=== PATIENT | female | born 1980 | race Caucasian/White ===

== ENCOUNTER → 2019-03-13 12:06 | Outpatient (CLI) | payer OTHER, SELFPAY ==
--- NOTE | 2019-03-13 | DI.RAD.S_ITS ---
PROCEDURE: [place] HIP INJECTION MR/CT RT INDICATIONS: PAIN IN RIGHT HIP TECHNIQUE: The indications, alternatives, benefits, risks, and complications of the procedure were explained to the patient. Written informed consent was obtained and placed in the chart. The hip was examined fluoroscopically with the legs fixed in slight internal rotation, and a site for needle placement chosen for entry into the hip joint from an anterior approach. Care was taken to locate the common femoral artery and vein beforehand. The skin was prepped and draped in a sterile fashion, and 1% Lidocaine infiltrated from skin down to joint capsule. A spinal needle was inserted into the joint, and a small amount of iodinated contrast media injected to confirm intra-articular placement of the needle tip. This was followed by approximately 10 mL dilute solution of a gadolinium containing MR contrast agent. The needle was removed and a dressing was applied. The patient was given postprocedural instructions and sent to the MR suite for imaging. FINDINGS: A single fluoroscopic spot image demonstrates intra-articular location of injected iodinated contrast. IMPRESSION: Successful fluoroscopically guided administration of dilute Gadolinium solution into the hip joint for MR arthrogram. Dictated by: Maritza Rome M.D. on 03/13/2019 at 14:54 Approved by: Maritza Rome M.D. on 03/13/2019 at 14:54
--- NOTE | 2019-03-13 13:41 | DI.MRI.S_ITS ---
PROCEDURE: MR HIP RT W CON INDICATIONS: PAIN IN RIGHT HIP TECHNIQUE: After the administration of 10 mL of dilute intra-articular Gadolinium contrast, coronal STIR of the bony pelvis; coronal and oblique axial T1 spin echo with fat saturation, axial T2 fast spin echo with fat saturation, sagittal T1 spin echo with and without fat saturation of the involved hip. COMPARISON: [facility], , [place] HIP INJECTION MR/CT RT, 03/13/2019, 12:54. FINDINGS: Image quality: Excellent. Bones and joints: Bone marrow of the pelvic ring and proximal femurs show normal signal throughout. No intraosseous lesions or fractures. No avascular necrosis of the femoral head. The visualized lower lumbar spine appears normally aligned. The ligamental, neck, and labral plicae appear normal where visualized. Tendons and ligaments: The gluteus medius and minimus tendons appear intact, without associated muscle atrophy. The nearby proximal iliotibial band also appears intact. The iliopsoas tendon appears intact, without adjacent bursal fluid collections or evidence for impingement syndrome. The origin of the hamstring tendon is intact at the ischial tuberosity, as well as the associated sacrotuberous ligament. The straight and reflected heads of the rectus femoris muscle origin appear intact, as well as the conjoint tendon. The ligamentum teres appears intact where visualized. Labrum and cartilage: The acetabular labrum appears intact throughout. Cartilage surface of the femoral head appears of normal thickness. No paralabral cysts. Anterior dysplastic osseous bump at the femoral head-neck junction however the alpha angle of the femur is within normal limits at 51?. Soft tissues: Incidentally noted prominent obturator vein. Visualized muscles demonstrate normal bulk and internal signal. Quadratus femoris muscle demonstrates no internal edema to suggest ischiofemoral impingement. The proximal sciatic neurovascular bundle appears normal adjacent to the hamstring tendons. No free pelvic fluid. Bladder wall thickness is normal. Genitourinary structures and bowel loops appear normal where visualized. IMPRESSION: No labral tear or internal derangement identified. Dictated by: Siva Zaman M.D. on 03/13/2019 at 15:13 Approved by: Siva Zaman M.D. on 03/13/2019 at 15:23
== END ==
PROVIDERS: Visit Provider Family Medicine
DX: M25.551 Pain in right hip (principal)
CPT/HCPCS: 27093; 73722; 77002

== ENCOUNTER 2023-04-12 11:33 | Day surgery (SDC) | payer OTHER, SELFPAY ==
[2023-04-09 12:27] VITALS: BMI 17.9
[2023-04-12] VITALS (10 sets, daily range): BP systolic 99–119; BP diastolic 63–71; PULSE 71–88; RESP 16; TEMP 36.2–37.1; O2SAT 98–100; BMI 17.9
--- NOTE | 2023-04-12 | PATH_ITS ---
[facility] Accession Number: [id number] No. of containers..01 Tissue . 01 Material submitted: . fallopian tube - RIGHT TUBE AND OVARY LEFT TUBE AND LIGACLIPS . 01 Diagnosis: Right Fallopian Tube and Ovary, and Left Fallopian Tube and Ligaclips, Excision: Benign ovary with cystic follicles and hemorrhagic corpus luteum. Negative for endometriosis, atypia, and malignancy. Benign bilateral fallopian tubes and paratubal cysts. MRV 04/18/2023 1658 Local . 01 Electronically signed: . Chris Rice MD, Pathologist NPI- [id number] . 01 Gross description: . The specimen is received in formalin labeled with the patient's name, , and R tube/ovary, L tube Ligaclip, consists of a presumed right tubo-ovarian unit (per the requisition) with the tube measuring 7.2 cm in length by 0.8 cm in average diameter, and the ovary weighing 8 grams and measuring 4.3 x 2.4 x 1.7 cm. The right tube has violaceous, smooth serosa with multiple metal surgical clips measuring 0.7 cm long by 0.1 cm wide identified at the terminal end of the tube. Multiple cystic structures measuring up to 0.5 cm in greatest dimension filled with sharp serous fluid are identified. Sectioning reveals an unremarkable stellate lumen. The ovary has a sharp, cerebriform external surface, and sectioning reveals multiple thin, smooth-walled cystic structures filled with serous fluid measuring up to 0.5 cm in greatest dimension with no excrescences. No lesions are identified, and the parenchyma is unremarkable. . The presumed left tube has violaceous, smooth serosa with a cystic structure near the fimbriated measuring 0.7 cm in greatest dimension filled with clear serous fluid. No clips are identified, and sectioning reveals an unremarkable stellate lumen. . Skin Care Technician sections are submitted as follows: A1: Right tube to include one-half of fimbria and cross sections. A2-A3: Right ovary. A4: Left tube to include one-half of bisected fimbria and cross sections. ([id number]) /MRV 04/13/2023 1331 Local . 01 Pathologist provided ICD-10: R10.2, R14.0 . 01 CPT . 223192 Specimen Comment: A courtesy copy of this report has been sent to [phone] Performed at: 01 [facility] [address] [place] [address], [place], [place] [id number] MD Boone Chiu MD Phone: [phone]
[2023-04-12] MEDS: LACTATED RINGERS 1,000 ML 42 ML IV (11:57)
[2023-04-12] MEDS: SCOPOLAMINE 1 PATCH TOP (12:21)
[2023-04-12] MEDS: ACETAMINOPHEN 325 MG TABLET 975 MG PO (12:24)
--- NOTE | 2023-04-12 13:24 | PM.PREOP ---
Pre-operative Note COVID-19 COVID-19 status: Not tested Interval Note History & Physical reviewed/Exam performed by Physician: Yes Changes to H&P: No
--- NOTE | 2023-04-12 13:36 | PM.PREOP ---
Pre-operative Note Interval Note History & Physical reviewed/Exam performed by Physician: Yes Changes to H&P: No H&P completed within 30 days and has changed as indicated here:: 04/02/23
--- NOTE | 2023-04-12 14:15 | SUR.OPER ---
Lithotomy on padded OR bed, head on pillow, arms secured on padded arm boards at <90 degrees abduction. Legs secured in padded yellow fins stirrups.
--- NOTE | 2023-04-12 14:32 | PM.OP.1 ---
Procedure & Clinicians Procedure: Cystoscopy with bilateral lighted ureteral catheter placement, Escobedo catheter placement. Same procedure as scheduled: Yes Indications: This 42-year-old female is to undergo diagnostic laparoscopy with possibilities of salpingo/oophorectomy per Gynecology. Dr. Betts had asked that bilateral ureteral catheters be placed to aid in identification of the ureter to prevent injury. The patient presents at this time for this procedure and then going onto the diagnostic and laparoscopic procedure per Gynecology. Surgeon: Radhames Fitzgerald Click Yes if Unassisted: Yes Anesthesia Type: General Operative Notes Findings: External genitalia is normal. Vaginal mucosa is normal urethral meatus is normal urethra is normal along its length. Ureteral orifices in normal position with clear efflux. Bladder mucosa is normal without erythema, tumor, mass, evidence of fistula or other abnormality. Bilateral lighted ureteral catheters were left in each of the collecting systems as well as a 16 Occitan 5 cc Escobedo catheter which was left in the bladder with 10 cc in the balloon and placed to gravity drainage. Closure Type: not applicable Specimen(s): none sent Prosthetic devices, grafts, tissues, transplants, or devices: Bilateral lighted ureteral catheters, 16 Occitan Escobedo catheter. Estimated Blood Loss (mL): 0 Blood products transfused: none Procedure in detail: Procedure in detail: After informed consent was obtained, the patient was identified and brought to the operating room where she was placed in a supine position on the operative table and anesthesia was induced and maintained. Ensuring an adequate level of anesthesia the patient was transitioned to the lithotomy position where she was prepped, draped, prepared for Transurethral procedure. After prepping, draping, ensuring an adequate level of anesthesia and time-out 22 Occitan cystoscope was passed through the urethra into the bladder where cystoscopy performed. The left ureteral orifice was then identified and the outer sheath for the lighted catheter was passed up and into the left collecting system with the aid of a hybrid guidewire. This was left in place and attention was turned to the right ureteral orifice and with the aid of the dual bridge the 2nd catheter was passed up and into the right collecting system with the aid of the hyper guidewire and left in place the wire was removed. The she is catheters were left in place. And then the fiberoptic elements was passed up and into each catheter without difficulty or resistance. With these in place a 16 Occitan 5 cc Escobedo catheter was easily passed through the urethra into the bladder where the balloon was filled until a sees sterile water. Then using a Tegaderm the catheters were secured to the Escobedo catheter. Dr. Betts may remove these at the end of the case which was her stated desire. There were no complications the patient tolerated the procedure well and with this done the patient went on to laparoscopic procedure per Dr. Betts this will be dictated under separate cover. Complications: none Post-operative Condition: stable Disposition: other (Patient went on the laparoscopic procedure per Dr. Betts who will determine her ultimate disposition.)
[2023-04-12] MEDS: CEFAZOLIN 2 GM/100 ML PREMIX 100 ML IV (14:49)
[2023-04-12] MEDS: BUPIVACAINE 0.5% (PF) 30 ML, EPINEPHrine 0.15 MG INJ (14:50)
--- NOTE | 2023-04-12 15:24 | P.OP_ITS ---
Operative Date/Time/Diagnoses Date of procedure: 04/12/23 Time of procedure: 15:24 Pre-op diagnosis: Persistent pelvic pain Post-op diagnosis: same Procedure & Clinicians Procedure: Procedures Operation Date: 04/12/23 13:30 Actual Procedure Side Surgeon p Cystoscopy w/ bilateral urethral catheter placement Radhames Fitzgerald MD p left salpingectomy,right salpingoopherectomy.lysis of adhesions Bilateral Elisha Betts MD Indications: 42-year-old with persistent pelvic pain after a vaginal hysterectomy with reoperation due to intraperitoneal bleeding Surgeon: Elisha Betts Commodity Industry Analyst: Susu Mathur Anesthesia Type: General and Local Operative Notes Findings: Uterus is surgically absent Normal tubes and ovaries In the right adnexa there are 3 Ligaclips Omental to left adnexa adhesions Normal liver Normal appendix Closure Type: primary Specimen(s): left tube and right tube & ovary Applied: catheter (With lighted stents, removed at the end of the case) Estimated blood loss (mL): 3 Blood products transfused: none Procedure in detail: After informed consent was obtained, the patient was taken to the operating room where she was placed in the dorsal supine position. After adequate general endotracheal anesthesia was achieved, she was placed in the dorsal lithotomy position, and prepped and draped in the usual sterile fashion. A time-out was performed. Lighted stents were placed per urology. A moistened sponge stick was placed into the vagina. Attention was then turned to the abdomen where 6 cc of 0.5% Marcaine with epinephrine were injected in the umbilical fold. A 5 mm incision was made. The Veress needle was placed into the peritoneal cavity, and its placement confirmed by aspiration and drop test. The abdomen was insufflated with 3.2 L of CO2. The Veress needle was removed, and a 5 mm trocar was placed without difficulty. Two other incisions were made 4 cm lateral to the midline after 6 cc of 0.5% Marcaine with epinephrine were injected. Two 5 mm trocars were placed under direct visualization. The LigaSure clips in the right adnexa were grasped with an atraumatic grasper. These were removed using the endo [place] with care to avoid the ureters. On the left side there was omentum attached to the left adnexa. The omentum was gently grabbed with an atraumatic grasper. Using the power seal, the adhesions were taken down with cautery and cut. Hemostasis was achieved. The instruments were removed from the abdomen. The CO2 was allowed to escape. The incisions were repaired with 4-0 Monocryl in a subcuticular fashion. Steri-Strips and Allevyn dressings were placed. The moistened sponge stick was removed from the vagina. Sponge, lap, and instrument counts were correct x2. The patient tolerated the procedure well, and was taken to PACU in stable condition. Complications: none Post-operative Condition: stable Disposition: PACU Plan for aftercare: Home after recovery
[2023-04-12] MEDS: HYDROMORPHONE 1 MG INJ IV (15:35)
[2023-04-12] MEDS: ONDANSETRON 4 MG/2 ML INJ IV (15:52)
[2023-04-12] MEDS: OXYCODONE IR 5 MG TABLET PO (15:53)
== END 2023-04-12 17:02 | disposition home or self-care (01) ==
LOC: OR 11:33 → AC 11:33
PROVIDERS: Urology; PCP Family Medicine; Referring Provider Obstetrics & Gynecology; Visit Provider Obstetrics & Gynecology
PROC: (CPT 52332; principal; 2023-04-12 13:30)
PROC: 0UT74ZZ Resection of Bilateral Fallopian Tubes, Percutaneous Endoscopic Approach (ICD-10-PCS; CPT 58661; 2023-04-12 13:30)
DX: R10.2 Pelvic and perineal pain (principal); N83.201 Unspecified ovarian cyst, right side; N83.8 Other noninflammatory disorders of ovary, fallopian tube and broad ligament; N73.6 Female pelvic peritoneal adhesions (postinfective)
CPT/HCPCS: 58661; 52332; J0171; J0690; J1100; J1170; J1885; J2250; J2405; J3010

== ENCOUNTER 2023-04-13 13:44 | Emergency (ER) | payer OTHER, SELFPAY ==
[2023-04-13 13:50] VITALS: BP 114/63; PULSE 75; RESP 18; TEMP 36.7; O2SAT 99; BMI 17.1
--- NOTE | 2023-04-13 14:00 | DI.CT.S_ITS ---
PROCEDURE: CT ABDOMEN PELVIS W CON INDICATIONS: surgeRy yesterday TECHNIQUE: After the administration of intravenous contrast, axial sections acquired from the lung bases to the pubic symphysis. Coronal and sagittal reformats were performed. For radiation dose reduction, the following was used: automated exposure control, adjustment of mA and/or kV according to patient size. COMPARISON: None. FINDINGS: Image quality: Excellent. Lung bases: Unremarkable. Heart: No significant findings. ABDOMEN: Liver: Unremarkable. Gallbladder: Contracted. Biliary ducts: Unremarkable. Pancreas: Unremarkable. Spleen: Unremarkable. Adrenal Glands: Unremarkable. Kidneys and Ureters: There is a slightly delayed right nephrogram. There is moderate right hydronephrosis. The right ureter is mild to moderately dilated throughout its course where visualized. The distal right ureter is not well characterized. The left kidney demonstrates normal size. No hydronephrosis or hydroureter. Stomach and Bowel: Stomach, small bowel loops, and colon are unremarkable. The appendix is thin walled and gas filled. Peritoneum: No abnormal intraperitoneal fluid. No free air. Ventral Wall: No hernias. Abdominal Nodes: No retroperitoneal or mesenteric adenopathy by size criteria. Vessels: Aorta and inferior vena cava are normal in size. PELVIS: Pelvic Organs: Unremarkable. Bladder: Unremarkable. Pelvic Nodes: No enlarged lymph nodes. Miscellaneous: No hernias are seen. Bones: Unremarkable. IMPRESSION: 1. Moderate right hydronephrosis and delayed right nephrogram. Mild to moderate dilatation of the right ureter where visualized. Findings raise the suspicion for a distal obstruction. Perioperative ureteral injury could also be considered in the differential. Dictated by: Chanda Coates M.D. on 04/13/2023 at 15:36 Approved by: Chanda Coates M.D. on 04/13/2023 at 15:44
[2023-04-13] MEDS: HYDROMORPHONE 0.5 MG INJ IV (14:15)
[2023-04-13] MEDS: SODIUM CHLORIDE 0.9% 1,000 ML 1000 ML IV ×2 (14:15→17:57)
[2023-04-13 14:19] LABS: Add Manual Diff / Slide Review NO; Basophils Absolute Auto 0 /uL (0-100); Basophils Percent Auto 0.2 % (0-2); Eosinophils Absolute Auto 0 /uL (0-450); Eosinophils Percent Auto 0.2 % (2-4); Hematocrit 36.6 % (36-46); Hemoglobin 12.3 g/dL (12.0-16.0); Lymphocytes Absolute Auto 1900 /uL (1100-4500); Lymphocytes Percent Auto 21.5 % (25-40); Mean Corpuscular HGB Conc 33.6 % (30-36); Mean Corpuscular Hemoglobin 31.8 PG (26-34); Mean Corpuscular Volume 94.6 fL (80-100); Monocytes Absolute Auto 600 /uL (0-900); Monocytes Percent Auto 7.5 % (3-14); Neutrophils Absolute Auto 6100 /uL (1500-7000); Neutrophils Percent Auto 70.6 % (50-75); Platelet Count 301 X10^3/uL (150-400); Red Blood Cell Count 3.87 X10^6/uL (4.0-5.2); Red Cell Distribution Width 12.9 % (11.6-14.8); White Blood Cell Count 8.6 X10^3/uL (4.5-11.0)
[2023-04-13 14:34] LABS: Alanine Aminotransferase 15 IU/L (<35); Albumin 4.4 g/dL (3.5-5.0); Albumin Globulin Ratio 1.5 (1.0-2.8); Alkaline Phosphatase 48 U/L (38-126); Aspartate Aminotransferase 21 IU/L (14-36); BUN Creatinine Ratio 16.2 (6-22); Bilirubin Total 0.3 mg/dL (0.2-1.3); Blood Urea Nitrogen 11 mg/dL (7-17); Calcium 9.6 mg/dL (8.4-10.2); Carbon Dioxide 27 mmol/L (22-32); Chloride 101 mmol/L (98-107); Estimated Glomerular Filt Rate > 60 mL/min (>60); Glucose 96 mg/dL (70-100); HEMOLYSIS < 15 (0-50); Potassium 3.8 mmol/L (3.4-5.1); Sodium 136 mmol/L (137-145); Total Protein 7.4 g/dL (6.3-8.2)
[2023-04-13 14:46] LABS: Bacteria Urine None Seen; Culture Indicated Urine Specimen Cultured; RBC Urine 5-10/HPF (0-5/HPF); Squamous Epithelial Cell Urine 1-5 /HPF (0-5/HPF); WBC Urine 5-10/HPF (0-5/HPF)
[2023-04-13] MEDS: PHENAZOPYRIDINE 100 MG TABLET 200 MG PO ×2 (15:56→19:20)
[2023-04-13] MEDS: KETOROLAC 30 MG/ML VIAL 15 MG IV (16:11)
--- NOTE | 2023-04-13 17:21 | ED.FEMALEGU ---
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 She reports that she has excruciating pain in her vaginal and urethral area. Unable to get comfortable taking multiple pain medications. No fever no nausea or vomiting. She previously had severe complication during her hysterectomy when sutures became loose she had a postoperative hemorrhage requiring mass transfusion protocol life flighted to [facility]. Today she feels excruciating pain more so than she previously. No fever or chills. Related Data Home Medications Medication Instructions Recorded Confirmed escitalopram oxalate 20 mg tablet 20 mg PO DAILY 12/27/22 04/12/23 (Lexapro) polyethylene glycol 3350 17 17 g PO DAILY PRN Constipation 04/02/23 04/12/23 gram/dose oral powder (Miralax) Previous Rx's Medication Instructions Recorded oxycodone 5 mg tablet 5 mg PO Q6H PRN pain #20 tabs 04/13/23 phenazopyridine 100 mg tablet 100 mg PO TID pain #9 tabs 04/13/23 (Pyridium) Allergies Allergy/AdvReac Type Severity Reaction Status Date / Time No Known Allergies Allergy Unknown Verified 04/13/23 13:50 Patient History Medical History Eczema (~1999) Anxiety (~1997) Fibromyalgia (~2013) Chronic back pain (~1998) Pelvic swelling Painful menstrual periods (~2007) Ovarian cyst (~2006) Irregular menstrual cycle (~2007) Heavy menstrual period (~2009) Fibroids (~05/2019) Surgical History History of hysterectomy for benign disease Family History Mother Eczema Substance Use Type: does not use Exam Initial Vital Signs Initial Vital Signs: Vital Signs Temperature 98.1 F 04/13/23 13:50 Pulse Rate 75 04/13/23 13:50 Respiratory Rate 18 04/13/23 13:50 Blood Pressure 114/63 04/13/23 13:50 Pulse Oximetry 99 04/13/23 13:50 Oxygen Delivery Method Room Air 04/13/23 13:50 GENERAL: Thin 42-year-old female, tearful HEENT: Head atraumatic,EOMI, pupils reactive, face symmetric, [moist] mucous membranes CARDIOVASCULAR: Regular rate and rhythm without murmurs, rubs or gallops. RESPIRATORY: Breath sounds equal bilaterally, no wheezes rales or rhonchi. ABDOMEN: Soft, nontender. Normoactive bowel sounds all 4 quadrants. No guarding or rebound. Incision sites are bandage lower suprapubic pain does have some blood minimally tender : No CVA tenderness EXTREMITIES: Normal range of motion, no clubbing or edema. Neurovascularly intact NEUROLOGICAL: Alert and oriented x4.Normal gait and speech. SKIN: Warm, dry, no laceration, no petechiae, no rashes or lesions. Course Orders Ordered: ED Orders 04/13/23 14:00 CT abdomen pelvis w con Stat 04/13/23 14:09 CBC Auto Diff [Complete Blood Count AUTO DIFF] Stat CMP [Comprehensive Metabolic Panel] Stat 04/13/23 14:26 Urine Culture Stat Urine Microscopic Stat Discontinued Medications Hydromorphone HCl (Hydromorphone 0.5 Mg Inj) 0.5 mg IV NOW ONE Stop: 04/13/23 14:01 Last Admin: 04/13/23 14:15 Dose: 0.5 mg Documented By: HELENA Hydromorphone HCl (Hydromorphone 1 Mg Inj) 1 mg IV NOW ONE Stop: 04/13/23 16:59 Last Admin: 04/13/23 17:27 Dose: 1 mg Documented By: SHAWN Sodium Chloride (Normal Saline 0.9%) 1,000 mls @ 1,000 mls/hr IV BOLUS ONE Stop: 04/13/23 14:59 Last Infusion: 04/13/23 15:20 Dose: Infused Documented By: Admin: 04/13/23 14:15 Dose: 1,000 mls/hr Documented By: HELENA Lidocaine HCl 4 ml/ Sodium (Chloride) 54 mls @ 324 mls/hr IV NOW ONE Stop: 04/13/23 16:57 Last Infusion: 04/13/23 17:56 Dose: Infused Documented By: Admin: 04/13/23 17:37 Dose: 324 mls/hr Documented By: SHAWN Sodium Chloride (Normal Saline 0.9%) 1,000 mls @ 1,000 mls/hr IV BOLUS ONE Stop: 04/13/23 18:55 Last Infusion: 04/13/23 19:20 Dose: Infused Documented By: Admin: 04/13/23 17:57 Dose: 1,000 mls/hr Documented By: NATALIIA Ketorolac Tromethamine (Ketorolac 30 Mg/Ml Vial) 15 mg IV NOW ONE Stop: 04/13/23 16:07 Last Admin: 04/13/23 16:11 Dose: 15 mg Documented By: SHAWN Ondansetron HCl (Ondansetron 4 Mg Odt) 4 mg SL NOW PRN PRN Reason: Nausea And Vomiting Ondansetron HCl (Ondansetron 4 Mg/2 Ml Inj) 4 mg IV NOW PRN PRN Reason: Nausea And Vomiting Phenazopyridine HCl (Phenazopyridine 100 Mg Tablet) 200 mg PO NOW ONE Stop: 04/13/23 15:51 Last Admin: 04/13/23 15:56 Dose: 200 mg Documented By: SHAWN Phenazopyridine HCl (Phenazopyridine 100 Mg Tablet) 200 mg PO NOW ONE Stop: 04/13/23 18:48 Last Admin: 04/13/23 19:20 Dose: 200 mg Documented By: NATALIIA Vital Signs Vital signs: Vital Signs - 8 hr 04/13/23 13:50 04/13/23 18:01 Temperature 98.1 F Pulse Rate 75 69 Respiratory Rate 18 20 Blood Pressure 114/63 123/71 Pulse Oximetry 99 99 Oxygen Delivery Method Room Air Room Air MDM - Female Genitourinary Lab Data 04/13/23 14:09 04/13/23 14:09 Labs: Lab Results 04/13/23 04/13/23 Range/Units 14:09 14:26 WBC 8.6 (4.5-11.0) X10^3/uL RBC 3.87 L (4.0-5.2) X10^6/uL Hgb 12.3 (12.0-16.0) g/dL Hct 36.6 (36-46) % MCV 94.6 (80-100) fL MCH 31.8 (26-34) PG MCHC 33.6 (30-36) % RDW 12.9 (11.6-14.8) % Plt Count 301 (150-400) X10^3/uL Neut % (Auto) 70.6 (50-75) % Lymph % (Auto) 21.5 L (25-40) % [place] % (Auto) 7.5 (3-14) % Eos % (Auto) 0.2 L (2-4) % Baso % (Auto) 0.2 (0-2) % Neut # (Auto) 6100 (6953-7796) /uL Lymph # (Auto) 1900 (3762-3400) /uL [place] # (Auto) 600 (0-900) /uL Eos # (Auto) 0 (0-450) /uL Baso # (Auto) 0 (0-100) /uL Sodium 136 L (137-145) mmol/L Potassium 3.8 (3.4-5.1) mmol/L Chloride 101 (98-107) mmol/L Carbon Dioxide 27 (22-32) mmol/L BUN 11 (7-17) mg/dL Creatinine 0.68 (0.52-1.04) mg/dL Estimated GFR > 60 (>60) mL/min BUN/Creatinine Ratio 16.2 (6-22) Glucose 96 (70-100) mg/dL Calcium 9.6 (8.4-10.2) mg/dL Total Bilirubin 0.3 (0.2-1.3) mg/dL AST 21 (14-36) IU/L ALT 15 (<35) IU/L Alkaline Phosphatase 48 (38-126) U/L Total Protein 7.4 (6.3-8.2) g/dL Albumin 4.4 (3.5-5.0) g/dL Globulin 3.0 (1.7-4.1) g/dL Albumin/Globulin Ratio 1.5 (1.0-2.8) Urine RBC 5-10/hpf H (0-5/HPF) Urine WBC 5-10/hpf H (0-5/HPF) Ur Squamous Epith Cells 1-5 /hpf (0-5/HPF) Urine Bacteria None seen (None) Ur Culture Indicated? Specimen cultured Urine Dip Bedside Urine Glucose Negative Bedside Urine Bilirubin - Negative Bedside Urine Ketone - Negative Urine Specific [place] 1.0 Bedside Urine Occult Blood +++ Bedside Urine pH 7.0 Bedside Urine Protein - Negative Bedside Urine Urobilinogen - Negative Bedside Urine Nitrite - Negative Bedside Urine Leukocytes + [address] scan - abdomen/pelvis: Radiologist's Impression: PROCEDURE: CT ABDOMEN PELVIS W CON INDICATIONS: surgeRy yesterday TECHNIQUE: After the administration of intravenous contrast, axial sections acquired from the lung bases to the pubic symphysis. Coronal and sagittal reformats were performed. For radiation dose reduction, the following was used: automated exposure control, adjustment of mA and/or kV according to patient size. COMPARISON: None. FINDINGS: Image quality: Excellent. Lung bases: Unremarkable. Heart: No significant findings. ABDOMEN: Liver: Unremarkable. Gallbladder: Contracted. Biliary ducts: Unremarkable. Pancreas: Unremarkable. Spleen: Unremarkable. Adrenal Glands: Unremarkable. Kidneys and Ureters: There is a slightly delayed right nephrogram. There is moderate right hydronephrosis. The right ureter is mild to moderately dilated throughout its course where visualized. The distal right ureter is not well characterized. The left kidney demonstrates normal size. No hydronephrosis or hydroureter. Stomach and Bowel: Stomach, small bowel loops, and colon are unremarkable. The appendix is thin walled and gas filled. Peritoneum: No abnormal intraperitoneal fluid. No free air. Ventral Wall: No hernias. Abdominal Nodes: No retroperitoneal or mesenteric adenopathy by size criteria. Vessels: Aorta and inferior vena cava are normal in size. PELVIS: Pelvic Organs: Unremarkable. Bladder: Unremarkable. Pelvic Nodes: No enlarged lymph nodes. Miscellaneous: No hernias are seen. Bones: Unremarkable. IMPRESSION: 1. Moderate right hydronephrosis and delayed right nephrogram. Mild to moderate dilatation of the right ureter where visualized. Findings raise the suspicion for a distal obstruction. Perioperative ureteral injury could also be considered in the differential. Dictated by: Chanda Coates M.D. on 04/13/2023 at 15:36 MDM Narrative Medical decision making narrative: Patient 42-year-old female with recent diagnostic laparoscopy presenting today with severe ureteral pain. Vitals are stable blood work has been reviewed overall reassuring. She is in extensive pain despite Pyridium Dilaudid fluids Toradol and a lidocaine drip. Although pain did improve with that medication. CT reviewed and concerning [id number] dilation of right ureter possible distal obstruction perioperative injury could also be considered Spoke with Dr. Fitzgerald who reports that ureteral stents were easily placed easily removed does not feel that there was any sort of complication. I spoke with Dr. Pittman on-call for orange picker machine operator who spoke with Dr. Betts the surgeon who reports no intraoperative complication. Unlikely to be a urethral complication or injury. Both surgeons report likely inflammatory and spasmodic both have encouraged Pyridium hydration and anti-inflammatories. I have discussed this with patient she understands she is agreeable. Overall needed reassurance. Patient did get some relief. Encouraged to take pain medications at home as directed Discharge Plan Departure Patient Disposition: Home Clinical Impression: Post-operative pain Instructions: DI for Postoperative Pain Activity Restrictions/Additional Instructions: *You have been diagnosed with postoperative pain *What to do: At this time it is likely thought the your pain is likely from spasm and irritation the ureteral stents. Hopefully this gets better. Please stay hydrated *Continue to take medications as directed Pyridium 1-200 mg every 8 hours next dose at midnight Oxycodone take as directed next dose at 8:00 p.m. if needed Ibuprofen 600 mg every 6 hours if needed for [id number] pain next dose at 11:00 p.m. *Follow up with your primary care provider in 2-3 days or call [phone] *Return to ER if you should have persistent pain dizziness lightheadedness abdominal pain nausea vomiting fever or any new, worsening or concerning symptoms Prescriptions: No Action oxycodone 5 mg tablet 5 mg PO Q6H PRN (Reason: pain) Qty: 20 0RF phenazopyridine [Pyridium] 100 mg tablet 100 mg PO TID Qty: 9 0RF escitalopram oxalate [Lexapro] 20 mg tablet 20 mg PO DAILY polyethylene glycol 3350 [Miralax] 17 gram/dose powder 17 g PO DAILY PRN (Reason: Constipation) Referrals: Denise Moon DO [Primary Care Provider] - Stand Alone Forms: Patient Portal/API
[2023-04-13] MEDS: HYDROMORPHONE 1 MG INJ IV (17:27)
[2023-04-13] MEDS: LIDOCAINE 2% IV (17:37)
[2023-04-13] MEDS: SODIUM CHLORIDE 0.9% IV (17:37)
[2023-04-13 18:01] VITALS: BP 123/71; PULSE 69; RESP 20; O2SAT 99
== END 2023-04-13 19:24 | disposition home or self-care (01) ==
PROVIDERS: Emergency Provider Emergency Medicine; PCP Family Medicine
DX: G89.18 Other acute postprocedural pain (principal); N89.8 Other specified noninflammatory disorders of vagina; Z90.722 Acquired absence of ovaries, bilateral
CPT/HCPCS: 74177; 80053; 81003; 81015; 85025; 87086; 96361; 96365; 96375; 96376; 99284; J1170; J1885; Q9967

== ENCOUNTER 2023-04-15 10:50 | Emergency (ER) | payer OTHER, SELFPAY ==
[2023-04-15] VITALS (26 sets, daily range): BP systolic 109–136; BP diastolic 57–80; PULSE 57–72; RESP 14–34; TEMP 36.5; O2SAT 91–99; BMI 17.1
[2023-04-15 11:20] LABS: Add Manual Diff / Slide Review NO; Basophils Absolute Auto 0 /uL (0-100); Basophils Percent Auto 0.2 % (0-2); Eosinophils Absolute Auto 0 /uL (0-450); Eosinophils Percent Auto 0.4 % (2-4); Hematocrit 31.2 % (36-46); Hemoglobin 10.7 g/dL (12.0-16.0); Lymphocytes Absolute Auto 700 /uL (1100-4500); Lymphocytes Percent Auto 14.5 % (25-40); Mean Corpuscular HGB Conc 34.1 % (30-36); Mean Corpuscular Hemoglobin 32.3 PG (26-34); Mean Corpuscular Volume 94.6 fL (80-100); Monocytes Absolute Auto 500 /uL (0-900); Monocytes Percent Auto 9.3 % (3-14); Neutrophils Absolute Auto 3900 /uL (1500-7000); Neutrophils Percent Auto 75.6 % (50-75); Platelet Count 189 X10^3/uL (150-400); Red Cell Distribution Width 12.5 % (11.6-14.8); White Blood Cell Count 5.1 X10^3/uL (4.5-11.0)
[2023-04-15 11:26] LABS: Alanine Aminotransferase 12 IU/L (<35); Albumin 3.5 g/dL (3.5-5.0); Albumin Globulin Ratio 1.2 (1.0-2.8); Alkaline Phosphatase 49 U/L (38-126); Aspartate Aminotransferase 25 IU/L (14-36); BUN Creatinine Ratio 11.2 (6-22); Bilirubin Total 0.3 mg/dL (0.2-1.3); Blood Urea Nitrogen 13 mg/dL (7-17); Calcium 8.8 mg/dL (8.4-10.2); Carbon Dioxide 26 mmol/L (22-32); Chloride 106 mmol/L (98-107); Estimated Glomerular Filt Rate > 60 mL/min (>60); Globulin 2.9 g/dL (1.7-4.1); Glucose 116 mg/dL (70-100); HEMOLYSIS < 15 (0-50); Lipase 58 U/L (23-300); Potassium 3.5 mmol/L (3.4-5.1); Sodium 136 mmol/L (137-145); Total Protein 6.4 g/dL (6.3-8.2)
[2023-04-15 11:38] LABS: Appearance Urine UA Slightly Cloudy; Color Urine UA ORANGE
--- NOTE | 2023-04-15 11:40 | ED.FEMALEGU ---
HPI - Female Genitourinary <Mohan Rabago PA-C - Last Filed: 04/15/23 19:23> General Chief complaint: Urogenital-Female Stated complaint: post op 04/12, pain not feeling better Time Seen by Provider: 04/15/23 11:12 Source: patient Mode of arrival: Ambulatory History of Present Illness HPI Narrative: This is a 42-year-old female presents emergency department due to continued pain starting in her urethral area radiating up to her lower back, primarily to the right flank. She states that she was seen here 2 days ago with pain control but she is now concerned that the pain is radiating up her right flank. She denies any new fevers, reports mild nausea, denies vomiting, denies shortness of breath, chest pain, or any other concerning signs or symptoms. She reports a diagnostic laparoscopy with salpingo-oophorectomy 5 days ago. Please see MDM below for complete review of this case. She is been taking her pain medication, oxycodone, Pyridium as prescribed with some relief. Related Data Home Medications Medication Instructions Recorded Confirmed escitalopram oxalate 20 mg tablet 20 mg PO DAILY 12/27/22 04/12/23 (Lexapro) polyethylene glycol 3350 17 17 g PO DAILY PRN Constipation 04/02/23 04/12/23 gram/dose oral powder (Miralax) Previous Rx's Medication Instructions Recorded oxycodone 5 mg tablet 5 mg PO Q6H PRN pain #20 tabs 04/13/23 phenazopyridine 100 mg tablet 100 mg PO TID pain #9 tabs 04/13/23 (Pyridium) ondansetron 8 mg disintegrating 8 mg PO Q8H PRN nausea and 04/14/23 tablet vomiting #10 tabs Allergies Allergy/AdvReac Type Severity Reaction Status Date / Time No Known Allergies Allergy Unknown Verified 04/15/23 11:07 Review of Systems <Mohan Rabago PA-C - Last Filed: 04/15/23 19:23> Review of Systems Narrative: GENERAL: Denies chills, fatigue, malaise, fever, sweats. HEENT: Denies sinus pain, ear pain, sore throat, difficulty swallowing, dizziness. RESPIRATORY: Denies dyspnea, cough, wheezing, hemoptysis, sputum. CARDIOVASCULAR: Denies chest pain, palpitations, orthopnea, edema, GASTROINTESTINAL: Reports mild nausea, denies vomiting, abdominal pain, diarrhea, constipation, melena. : Reports right flank pain Denies dysuria, frequency, incontinence, hematuria, urinary retention. MUSCULOSKELETAL: denies weakness, joint pain, or bony pain SKIN: Denies rash, skin lesions, or other NEUROLOGIC: Denies weakness, headache, numbness, change in speech, confusion, seizures, incoordination. PSYCHIATRIC: No concerning psychosocial issues. 12 point review of systems is negative except for those stated above Patient History <Mohan Rabago PA-C - Last Filed: 04/15/23 19:23> Medical History Eczema (~1999) Anxiety (~1997) Fibromyalgia (~2013) Chronic back pain (~1998) Pelvic swelling Painful menstrual periods (~2007) Ovarian cyst (~2006) Irregular menstrual cycle (~2007) Heavy menstrual period (~2009) Fibroids (~05/2019) Surgical History History of hysterectomy for benign disease Family History Mother Eczema Substance Use Type: does not use Exam <Mohan Rabago PA-C - Last Filed: 04/15/23 19:23> Narrative Exam Narrative: GENERAL: Well-developed patient, in mild distress. HEAD: Atraumatic. Normocephalic. EYES: Pupils equal round and reactive. Extraocular motions intact. No scleral icterus. No injection or drainage. ENT: Nose without bleeding, purulent drainage. Throat without erythema, tonsillar hypertrophy or exudate. Airway patent. NECK: Trachea midline. Non tender CARDIOVASCULAR: Regular rate and rhythm without murmurs, gallops, or rubs. RESPIRATORY: Clear to auscultation. Breath sounds equal bilaterally. No wheezes, rales, or rhonchi. GASTROINTESTINAL: Abdomen soft, non-tender, four bandaged laparoscopic incision sites without spreading erythema or drainage. EXTREMITIES: No edema or joint tenderness. BACK: Right CVA tenderness to palpation NEURO: AOx3. SKIN: No rash or erythema of visible areas Initial Vital Signs Initial Vital Signs: Vital Signs Blood Pressure 124/74 04/15/23 11:01 <Elmira Palma DO - Last Filed: 04/16/23 18:17> Initial Vital Signs Initial Vital Signs: Vital Signs Blood Pressure 124/74 04/15/23 11:01 Course <Mohan Rabago PA-C - Last Filed: 04/15/23 19:23> Orders Ordered: Discontinued Medications Hydromorphone HCl (Hydromorphone 1 Mg Inj) 1 mg IV NOW ONE Stop: 04/15/23 20:42 Last Admin: 04/15/23 20:50 Dose: 1 mg Documented By: HELENA Hydromorphone HCl (Hydromorphone 1 Mg Inj) 1 mg IV Q4H PRN PRN Reason: Pain, Severe (7-10) Last Admin: 04/16/23 06:56 Dose: 1 mg Documented By: SMITHA Ceftriaxone Sodium 1,000 mg/ (Sodium Chloride) 100 mls @ 200 mls/hr IV NOW ONE Stop: 04/15/23 12:35 Last Infusion: 04/15/23 13:30 Dose: Infused Documented By: Admin: 04/15/23 12:42 Dose: 200 mls/hr Documented By: RB Sodium Chloride (Normal Saline 0.9%) 1,000 mls @ 150 mls/hr IV CONT SHARON Last Infusion: 04/16/23 07:06 Dose: Infused Documented By: Admin: 04/16/23 00:01 Dose: 150 mls/hr Documented By: HELENA Ketorolac Tromethamine (Ketorolac 30 Mg/Ml Vial) 15 mg IV NOW ONE Stop: 04/15/23 23:51 Last Admin: 04/16/23 00:01 Dose: 15 mg Documented By: HELENA Lorazepam (Lorazepam 2 Mg/Ml Inj) 1 mg IV NOW ONE Stop: 04/15/23 15:24 Last Admin: 04/15/23 15:43 Dose: 1 mg Documented By: RL Lorazepam (Lorazepam 2 Mg/Ml Inj) 1 mg IV NOW ONE Stop: 04/15/23 23:51 Last Admin: 04/16/23 00:01 Dose: 1 mg Documented By: HEELNA Lorazepam (Lorazepam 2 Mg/Ml Inj) 1 mg IV NOW ONE Stop: 04/16/23 07:14 Last Admin: 04/16/23 07:13 Dose: 1 mg Documented By: SMITHA Ondansetron HCl (Ondansetron 4 Mg/2 Ml Inj) 4 mg IV NOW PRN PRN Reason: Nausea And Vomiting Last Admin: 04/16/23 06:56 Dose: 4 mg Documented By: SMITHA Ondansetron HCl (Ondansetron 4 Mg Odt) 4 mg PO NOW PRN PRN Reason: Nausea And Vomiting Oxybutynin (Oxybutynin 5 Mg Tablet) 5 mg PO NOW ONE Stop: 04/15/23 13:26 Last Admin: 04/15/23 13:34 Dose: 5 mg Documented By: HELENA Vital Signs Vital signs: Vital Signs - 8 hr 04/15/23 21:30 04/15/23 21:30 04/15/23 22:00 Pulse Rate 61 Blood Pressure 113/62 111/64 Pulse Oximetry 95 04/15/23 22:00 04/16/23 00:08 04/16/23 00:08 Pulse Rate 58 L 61 Blood Pressure 126/66 Pulse Oximetry 95 99 04/16/23 00:30 04/16/23 00:30 04/16/23 01:00 Pulse Rate 57 L 59 L Blood Pressure 111/59 L Pulse Oximetry 97 96 04/16/23 01:00 04/16/23 01:30 04/16/23 01:30 Pulse Rate 62 Blood Pressure 111/60 112/63 Pulse Oximetry 95 04/16/23 02:00 04/16/23 02:00 04/16/23 02:30 Pulse Rate 67 Blood Pressure 120/62 127/71 Pulse Oximetry 94 04/16/23 02:30 04/16/23 03:00 04/16/23 03:00 Pulse Rate 57 L 65 Blood Pressure 123/65 Pulse Oximetry 94 94 04/16/23 03:30 04/16/23 03:30 04/16/23 04:00 Pulse Rate 57 L 58 L Blood Pressure 121/65 Pulse Oximetry 92 92 04/16/23 04:00 04/16/23 04:30 04/16/23 04:30 Pulse Rate 56 L Blood Pressure 120/65 118/64 Pulse Oximetry 91 <Elmira Palma, - Last Filed: 04/16/23 18:17> Orders Ordered: Discontinued Medications Hydromorphone HCl (Hydromorphone 1 Mg Inj) 1 mg IV NOW ONE Stop: 04/15/23 20:42 Last Admin: 04/15/23 20:50 Dose: 1 mg Documented By: HELENA Hydromorphone HCl (Hydromorphone 1 Mg Inj) 1 mg IV Q4H PRN PRN Reason: Pain, Severe (7-10) Last Admin: 04/16/23 06:56 Dose: 1 mg Documented By: SMITHA Ceftriaxone Sodium 1,000 mg/ (Sodium Chloride) 100 mls @ 200 mls/hr IV NOW ONE Stop: 04/15/23 12:35 Last Infusion: 04/15/23 13:30 Dose: Infused Documented By: Admin: 04/15/23 12:42 Dose: 200 mls/hr Documented By: RB Sodium Chloride (Normal Saline 0.9%) 1,000 mls @ 150 mls/hr IV CONT SHARON Last Infusion: 04/16/23 07:06 Dose: Infused Documented By: Admin: 04/16/23 00:01 Dose: 150 mls/hr Documented By: HELENA Ketorolac Tromethamine (Ketorolac 30 Mg/Ml Vial) 15 mg IV NOW ONE Stop: 04/15/23 23:51 Last Admin: 04/16/23 00:01 Dose: 15 mg Documented By: HELENA Lorazepam (Lorazepam 2 Mg/Ml Inj) 1 mg IV NOW ONE Stop: 04/15/23 15:24 Last Admin: 04/15/23 15:43 Dose: 1 mg Documented By: HELENA Lorazepam (Lorazepam 2 Mg/Ml Inj) 1 mg IV NOW ONE Stop: 04/15/23 23:51 Last Admin: 04/16/23 00:01 Dose: 1 mg Documented By: HELENA Lorazepam (Lorazepam 2 Mg/Ml Inj) 1 mg IV NOW ONE Stop: 04/16/23 07:14 Last Admin: 04/16/23 07:13 Dose: 1 mg Documented By: SMITHA Ondansetron HCl (Ondansetron 4 Mg/2 Ml Inj) 4 mg IV NOW PRN PRN Reason: Nausea And Vomiting Last Admin: 04/16/23 06:56 Dose: 4 mg Documented By: SMITHA Ondansetron HCl (Ondansetron 4 Mg Odt) 4 mg PO NOW PRN PRN Reason: Nausea And Vomiting Oxybutynin (Oxybutynin 5 Mg Tablet) 5 mg PO NOW ONE Stop: 04/15/23 13:26 Last Admin: 11/05/23 13:34 Dose: 5 mg Documented By: HELENA Vital Signs Vital signs: Vital Signs - 8 hr 04/15/23 21:30 04/15/23 21:30 04/15/23 22:00 Pulse Rate 61 Blood Pressure 113/62 111/64 Pulse Oximetry 95 04/15/23 22:00 04/16/23 00:08 04/16/23 00:08 Pulse Rate 58 L 61 Blood Pressure 126/66 Pulse Oximetry 95 99 04/16/23 00:30 04/16/23 00:30 04/16/23 01:00 Pulse Rate 57 L 59 L Blood Pressure 111/59 L Pulse Oximetry 97 96 04/16/23 01:00 04/16/23 01:30 04/16/23 01:30 Pulse Rate 62 Blood Pressure 111/60 112/63 Pulse Oximetry 95 04/16/23 02:00 04/16/23 02:00 04/16/23 02:30 Pulse Rate 67 Blood Pressure 120/62 127/71 Pulse Oximetry 94 04/16/23 02:30 04/16/23 03:00 04/16/23 03:00 Pulse Rate 57 L 65 Blood Pressure 123/65 Pulse Oximetry 94 94 04/16/23 03:30 04/16/23 03:30 04/16/23 04:00 Pulse Rate 57 L 58 L Blood Pressure 121/65 Pulse Oximetry 92 92 04/16/23 04:00 04/16/23 04:30 04/16/23 04:30 Pulse Rate 56 L Blood Pressure 120/65 118/64 Pulse Oximetry 91 MDM - Female Genitourinary <Mohan Rabago PA-C - Last Filed: 04/15/23 19:23> Lab Data 04/16/23 04:12 04/16/23 04:12 Labs: Lab Results 04/15/23 04/15/23 04/15/23 Range/Units 11:02 11:05 18:11 WBC 5.1 (4.5-11.0) X10^3/uL RBC 3.30 L (4.0-5.2) X10^6/uL Hgb 10.7 L (12.0-16.0) g/dL Hct 31.2 L (36-46) % MCV 94.6 (80-100) fL MCH 32.3 (26-34) PG MCHC 34.1 (30-36) % RDW 12.5 (11.6-14.8) % Plt Count 189 (150-400) X10^3/uL Neut % (Auto) 75.6 H (50-75) % Lymph % (Auto) 14.5 L (25-40) % [place] % (Auto) 9.3 (3-14) % Eos % (Auto) 0.4 L (2-4) % Baso % (Auto) 0.2 (0-2) % Neut # (Auto) 3900 (8666-0802) /uL Lymph # (Auto) 700 L (0396-9448) /uL [place] # (Auto) 500 (0-900) /uL Eos # (Auto) 0 (0-450) /uL Baso # (Auto) 0 (0-100) /uL Sodium 136 L (137-145) mmol/L Potassium 3.5 (3.4-5.1) mmol/L Chloride 106 (98-107) mmol/L Carbon Dioxide 26 (22-32) mmol/L BUN 13 (7-17) mg/dL Creatinine 1.16 H (0.52-1.04) mg/dL Estimated GFR > 60 (>60) mL/min BUN/Creatinine Ratio 11.2 (6-22) Glucose 116 H (70-100) mg/dL Calcium 8.8 (8.4-10.2) mg/dL Total Bilirubin 0.3 (0.2-1.3) mg/dL AST 25 (14-36) IU/L ALT 12 (<35) IU/L Alkaline Phosphatase 49 (38-126) U/L Total Protein 6.4 (6.3-8.2) g/dL Albumin 3.5 (3.5-5.0) g/dL Globulin 2.9 (1.7-4.1) g/dL Albumin/Globulin Ratio 1.2 (1.0-2.8) Lipase 58 (23-300) U/L Urine Color [place] Urine Appearance Slightly cloudy Urine pH TNP Ur Specific [place] TNP Urine Protein TNP Urine Glucose (UA) TNP Urine Ketones TNP Urine Occult Blood TNP Urine Nitrate TNP Urine Bilirubin TNP Ur Bilirubin Confirm TNP Urine Urobilinogen TNP Ur Leukocyte Esterase TNP Urine RBC 30-100/hpf H (0-5/HPF) Urine WBC 1-5/hpf (0-5/HPF) Ur Squamous Epith Cells 5-10 /hpf H (0-5/HPF) Urine Bacteria Few (2-10) H (None) Ur Culture Indicated? Specimen cultured SARS-CoV-2 (PCR) Negative (Negative) 04/16/23 Range/Units 04:12 WBC 3.5 L (4.5-11.0) X10^3/uL RBC 3.06 L (4.0-5.2) X10^6/uL Hgb 9.7 L (12.0-16.0) g/dL Hct 28.7 L (36-46) % MCV 93.7 (80-100) fL MCH 31.7 (26-34) PG MCHC 33.8 (30-36) % RDW 12.4 (11.6-14.8) % Plt Count 156 (150-400) X10^3/uL Neut % (Auto) 60.9 (50-75) % Lymph % (Auto) 27.7 (25-40) % [place] % (Auto) 10.0 (3-14) % Eos % (Auto) 1.0 L (2-4) % Baso % (Auto) 0.4 (0-2) % Neut # (Auto) 2200 (3503-3879) /uL Lymph # (Auto) 1000 L (1618-1274) /uL [place] # (Auto) 400 (0-900) /uL Eos # (Auto) 0 (0-450) /uL Baso # (Auto) 0 (0-100) /uL Sodium 136 L (137-145) mmol/L Potassium 3.6 (3.4-5.1) mmol/L Chloride 108 H (98-107) mmol/L Carbon Dioxide 25 (22-32) mmol/L BUN 10 (7-17) mg/dL Creatinine 0.97 (0.52-1.04) mg/dL Estimated GFR > 60 (>60) mL/min BUN/Creatinine Ratio 10.3 (6-22) Glucose 88 (70-100) mg/dL Calcium 8.3 L (8.4-10.2) mg/dL Total Bilirubin (0.2-1.3) mg/dL AST (14-36) IU/L ALT (<35) IU/L Alkaline Phosphatase (38-126) U/L Total Protein (6.3-8.2) g/dL Albumin (3.5-5.0) g/dL Globulin (1.7-4.1) g/dL Albumin/Globulin Ratio (1.0-2.8) Lipase (23-300) U/L Urine Color Urine Appearance Urine pH Ur Specific [place] Urine Protein Urine Glucose (UA) Urine Ketones Urine Occult Blood Urine Nitrate Urine Bilirubin Ur Bilirubin Confirm Urine Urobilinogen Ur Leukocyte Esterase Urine RBC (0-5/HPF) Urine WBC (0-5/HPF) Ur Squamous Epith Cells (0-5/HPF) Urine Bacteria (None) Ur Culture Indicated? SARS-CoV-2 (PCR) (Negative) Urine Dip Bedside Urine Glucose 250 mg/dl Bedside Urine Bilirubin +++ 4 Bedside Urine Ketone +/- 5 Urine Specific [place] 1.015 Bedside Urine Occult Blood +++ Bedside Urine pH 5.0 Bedside Urine Protein +/- 15 Bedside Urine Urobilinogen 3+ 8mg Bedside Urine Nitrite + Positive Bedside Urine Leukocytes +++ [address] scan - abdomen/pelvis: Radiologist's Impression: [place] [address] CT Scan Report Signed Patient: Emili Mojica MR#: [id number] : 1980 Acct:[id number] Age/Sex: 42 / F Date of Service: 04/15/23 Loc: ED Accession Number: [id number] Procedure: CT kidney ureter bladder (KUB) Ordering Provider: Mohan Rabago P.A-C PROCEDURE: CT KIDNEY URETER BLADDER (KUB) INDICATIONS: r/o obstruction TECHNIQUE: Axial sections were acquired from the lung bases to the pubic symphysis. Coronal and sagittal reformats were performed. For radiation dose reduction, the following was used: automated exposure control, adjustment of mA and/or kV according to patient size. COMPARISON: [facility], CT, CT ABDOMEN PELVIS W CON, 04/13/2023, 15:16. FINDINGS: Image quality: Excellent. Lung bases: Unremarkable. Heart: No significant findings. URINARY: Kidneys and ureters: There is an extremely delayed right nephrogram with opacification of, and mild dilatation of the collecting system and mild to moderate right hydroureter, opacified with contrast. There is no contrast excretion in the left kidney. Contrast was last administered nearly 48 hours ago. No visible distal ureteral calcifications. Bladder: Diffusely decompressed. No stones. No visible urethral stone. ABDOMEN: Liver: Normal size. Gallbladder: Decompressed. There is moderate pericholecystic fluid, nonspecific. No calcifications. Biliary ducts: Nondilated. Pancreas: Normal contour. Spleen: Unremarkable. Adrenal Glands: Unremarkable. Stomach and Bowel: Stomach, small bowel loops, and colon are unremarkable. Appendix appears normal. Peritoneum: Scattered foci of free intraperitoneal gas, and gas dissecting in the right abdominal wall musculature. There is a small to moderate amount of free pelvic fluid. Ventral Wall: No hernia. Abdominal Nodes: No enlarged retroperitoneal or mesenteric lymph nodes. Vessels: Aorta and inferior vena cava are normal in size. PELVIS: Pelvic Organs: Per report, patient is status post hysterectomy. Left ovary contour appears normal. Right ovary was not seen. Pelvic Nodes: Unremarkable. Miscellaneous: No inguinal hernias are seen. Bones: Unremarkable. IMPRESSION: 1. Significantly delayed right renal function and [id number] right hydroureteronephrosis. The distal most ureter is not opacified. There is likely a near complete ureteral obstruction at this level. 2. Postsurgical changes of hysterectomy and right oophorectomy including some free pelvic fluid and trace amounts of free intraperitoneal air. Dictated by: Hattie Malin M.D. on 04/15/2023 at 13:24 Approved by: Hattie Malin M.D. on 04/15/2023 at 13:31 MDM Narrative Medical decision making narrative: MDM * differential diagnosis includes but not limited to nephrolithiasis, ureteral stone, ureteral obstruction, UTI, pyelonephritis, postop pain * Prior records reviewed: Patient was seen in this emergency department 2 days ago for post pain. History of prior hysterectomy. Underwent a diagnostic laparoscopy with salpingo-oophorectomy with gynecology and urology 3 days ago. Patient came in 2 days ago due to excruciating pain in her vaginal and urethral area. She did not have any fever nausea or vomiting. During her previous hysterectomy she had a severe complication where sutures became loose and she would a postoperative hemorrhage requiring massive transfusion protocol and life flighted to [facility]. CT abdomen pelvis performed 2 days ago which showed Moderate right hydronephrosis and delayed right nephrogram. Mild to moderate dilatation of the right ureter where visualized. Findings raise the suspicion for a distal obstruction. Perioperative ureteral injury could also be considered in the differential. Lab work was unremarkable. She was given Pyridium, Dilaudid, fluids, Toradol, and a lidocaine drip which eventually controlled with the pain. ED physician spoke with Dr. Fitzgerald of Urology who stated that the ureteral stents were easily placed and does not feel like there was any sort of complication. ED physician also spoke with Dr. Pittman who is the on-call business technology architect who spoke with Dr. Betts who reports no intraoperative complications. Both surgeons report likely inflammatory and spasmodic and encouraged Pyridium, hydration, anti-inflammatories. Patient was discharged with a oxycodone, Pyridium for pain control. * My lab interpretation: No leukocytosis. CMP showed elevated creatinine of 1.16 from 0.68 2 days ago. GFR within normal limits. UA unable to be fully analyze secondary to Pyridium use. COVID test negative. * My imaging interpretation: CT findings as above. Did state near likely obstruction of the right ureter. [id number] right hydroureteronephrosis. Also showed postsurgical changes of hysterectomy and right oophorectomy including some free pelvic fluid and trace amounts of free intraperitoneal air. * Clinical Decision Rules/Scores evaluated: None * Independent discussions with: Dr. aCrroll as below ED Course: This is a 42-year-old female presents to the emergency department postop day 5 after laparoscopic salpingo-oophorectomy with gynecology as well as stent placement and removal with Urology. She has been reporting continued pain worse in the right flank. Patient was given a dose of Rocephin. Repeat CT KUB ordered which showed near complete obstruction of the right ureter. Patient was noted to have elevated kidney function, 1.16 from 0.682 days ago. This was discussed with on-call urologist, Dr. Carroll, who recommended urgent transfer to a facility with IR capabilities for a nephrostomy tube placement. Pain has been controlled with patient's p.o. oxycodone on request. Multiple facilities have been contacted and who have stated that they have no bed availability. Our equal opportunity director is currently waiting to hear back from [facility] regarding possible bed availability. Care was transferred to my attending physician, Dr. Palma, at end of my shift. Shared Decision Making: Discussed plan with the patient who is comfortable with the plan. Social Considerations: None Disposition: Pending transfer <Elmira Minerva, - Last Filed: 04/16/23 18:17> Lab Data Labs: Lab Results 04/15/23 04/15/23 04/15/23 Range/Units 11:02 11:05 18:11 WBC 5.1 (4.5-11.0) X10^3/uL RBC 3.30 L (4.0-5.2) X10^6/uL Hgb 10.7 L (12.0-16.0) g/dL Hct 31.2 L (36-46) % MCV 94.6 (80-100) fL MCH 32.3 (26-34) PG MCHC 34.1 (30-36) % RDW 12.5 (11.6-14.8) % Plt Count 189 (150-400) X10^3/uL Neut % (Auto) 75.6 H (50-75) % Lymph % (Auto) 14.5 L (25-40) % [place] % (Auto) 9.3 (3-14) % Eos % (Auto) 0.4 L (2-4) % Baso % (Auto) 0.2 (0-2) % Neut # (Auto) 3900 (7225-8817) /uL Lymph # (Auto) 700 L (3272-0452) /uL [place] # (Auto) 500 (0-900) /uL Eos # (Auto) 0 (0-450) /uL Baso # (Auto) 0 (0-100) /uL Sodium 136 L (137-145) mmol/L Potassium 3.5 (3.4-5.1) mmol/L Chloride 106 (98-107) mmol/L Carbon Dioxide 26 (22-32) mmol/L BUN 13 (7-17) mg/dL Creatinine 1.16 H (0.52-1.04) mg/dL Estimated GFR > 60 (>60) mL/min BUN/Creatinine Ratio 11.2 (6-22) Glucose 116 H (70-100) mg/dL Calcium 8.8 (8.4-10.2) mg/dL Total Bilirubin 0.3 (0.2-1.3) mg/dL AST 25 (14-36) IU/L ALT 12 (<35) IU/L Alkaline Phosphatase 49 (38-126) U/L Total Protein 6.4 (6.3-8.2) g/dL Albumin 3.5 (3.5-5.0) g/dL Globulin 2.9 (1.7-4.1) g/dL Albumin/Globulin Ratio 1.2 (1.0-2.8) Lipase 58 (23-300) U/L Urine Color [place] Urine Appearance Slightly cloudy Urine pH TNP Ur Specific [place] TNP Urine Protein TNP Urine Glucose (UA) TNP Urine Ketones TNP Urine Occult Blood TNP Urine Nitrate TNP Urine Bilirubin TNP Ur Bilirubin Confirm TNP Urine Urobilinogen TNP Ur Leukocyte Esterase TNP Urine RBC 30-100/hpf H (0-5/HPF) Urine WBC 1-5/hpf (0-5/HPF) Ur Squamous Epith Cells 5-10 /hpf H (0-5/HPF) Urine Bacteria Few (2-10) H (None) Ur Culture Indicated? Specimen cultured SARS-CoV-2 (PCR) Negative (Negative) 04/16/23 Range/Units 04:12 WBC 3.5 L (4.5-11.0) X10^3/uL RBC 3.06 L (4.0-5.2) X10^6/uL Hgb 9.7 L (12.0-16.0) g/dL Hct 28.7 L (36-46) % MCV 93.7 (80-100) fL MCH 31.7 (26-34) PG MCHC 33.8 (30-36) % RDW 12.4 (11.6-14.8) % Plt Count 156 (150-400) X10^3/uL Neut % (Auto) 60.9 (50-75) % Lymph % (Auto) 27.7 (25-40) % [place] % (Auto) 10.0 (3-14) % Eos % (Auto) 1.0 L (2-4) % Baso % (Auto) 0.4 (0-2) % Neut # (Auto) 2200 (6645-5154) /uL Lymph # (Auto) 1000 L (7167-2161) /uL [place] # (Auto) 400 (0-900) /uL Eos # (Auto) 0 (0-450) /uL Baso # (Auto) 0 (0-100) /uL Sodium 136 L (137-145) mmol/L Potassium 3.6 (3.4-5.1) mmol/L Chloride 108 H (98-107) mmol/L Carbon Dioxide 25 (22-32) mmol/L BUN 10 (7-17) mg/dL Creatinine 0.97 (0.52-1.04) mg/dL Estimated GFR > 60 (>60) mL/min BUN/Creatinine Ratio 10.3 (6-22) Glucose 88 (70-100) mg/dL Calcium 8.3 L (8.4-10.2) mg/dL Total Bilirubin (0.2-1.3) mg/dL AST (14-36) IU/L ALT (<35) IU/L Alkaline Phosphatase (38-126) U/L Total Protein (6.3-8.2) g/dL Albumin (3.5-5.0) g/dL Globulin (1.7-4.1) g/dL Albumin/Globulin Ratio (1.0-2.8) Lipase (23-300) U/L Urine Color Urine Appearance Urine pH Ur Specific [place] Urine Protein Urine Glucose (UA) Urine Ketones Urine Occult Blood Urine Nitrate Urine Bilirubin Ur Bilirubin Confirm Urine Urobilinogen Ur Leukocyte Esterase Urine RBC (0-5/HPF) Urine WBC (0-5/HPF) Ur Squamous Epith Cells (0-5/HPF) Urine Bacteria (None) Ur Culture Indicated? SARS-CoV-2 (PCR) (Negative) Urine Dip Bedside Urine Glucose 250 mg/dl Bedside Urine Bilirubin +++ 4 Bedside Urine Ketone +/- 5 Urine Specific [place] 1.015 Bedside Urine Occult Blood +++ Bedside Urine pH 5.0 Bedside Urine Protein +/- 15 Bedside Urine Urobilinogen 3+ 8mg Bedside Urine Nitrite + Positive Bedside Urine Leukocytes +++ 500 Esterase MDM Narrative Medical decision making narrative: MDM * differential diagnosis includes but not limited to nephrolithiasis, ureteral stone, ureteral obstruction, UTI, pyelonephritis, postop pain * Prior records reviewed: Patient was seen in this emergency department 2 days ago for post pain. History of prior hysterectomy. Underwent a diagnostic laparoscopy with salpingo-oophorectomy with gynecology and urology 3 days ago. Patient came in 2 days ago due to excruciating pain in her vaginal and urethral area. She did not have any fever nausea or vomiting. During her previous hysterectomy she had a severe complication where sutures became loose and she would a postoperative hemorrhage requiring massive transfusion protocol and life flighted to [facility]. CT abdomen pelvis performed 2 days ago which showed Moderate right hydronephrosis and delayed right nephrogram. Mild to moderate dilatation of the right ureter where visualized. Findings raise the suspicion for a distal obstruction. Perioperative ureteral injury could also be considered in the differential. Lab work was unremarkable. She was given Pyridium, Dilaudid, fluids, Toradol, and a lidocaine drip which eventually controlled with the pain. ED physician spoke with Dr. Fitzgerald of Urology who stated that the ureteral stents were easily placed and does not feel like there was any sort of complication. ED physician also spoke with Dr. Pittman who is the on-call business technology architect who spoke with Dr. Betts who reports no intraoperative complications. Both surgeons report likely inflammatory and spasmodic and encouraged Pyridium, hydration, anti-inflammatories. Patient was discharged with a oxycodone, Pyridium for pain control. * My lab interpretation: No leukocytosis. CMP showed elevated creatinine of 1.16 from 0.68 2 days ago. GFR within normal limits. UA unable to be fully analyze secondary to Pyridium use. COVID test negative. * My imaging interpretation: CT findings as above. Did state near likely obstruction of the right ureter. [id number] right hydroureteronephrosis. Also showed postsurgical changes of hysterectomy and right oophorectomy including some free pelvic fluid and trace amounts of free intraperitoneal air. * Clinical Decision Rules/Scores evaluated: None * Independent discussions with: Dr. Carroll as below ED Course: This is a 42-year-old female presents to the emergency department postop day 5 after laparoscopic salpingo-oophorectomy with gynecology as well as stent placement and removal with Urology. She has been reporting continued pain worse in the right flank. Patient was given a dose of Rocephin. Repeat CT KUB ordered which showed near complete obstruction of the right ureter. Patient was noted to have elevated kidney function, 1.16 from 0.682 days ago. This was discussed with on-call urologist, Dr. Carroll, who recommended urgent transfer to a facility with IR capabilities for a nephrostomy tube placement. Pain has been controlled with patient's p.o. oxycodone on request. Multiple facilities have been contacted and who have stated that they have no bed availability. Our equal opportunity director is currently waiting to hear back from [facility] regarding possible bed availability. Care was transferred to my attending physician, Dr. Palma, at end of my shift. Shared Decision Making: Discussed plan with the patient who is comfortable with the plan. Social Considerations: None Disposition: Pending transfer Dr. Palma--Patient seen and evaluated by myself, I am familar with patient. Presents again today with increasing pain, elvated renal function and total opacivication of distal right ureter. Multiple hospitals called, [facility]. She previously went to [facility]. I did talk with [facility]. However they were unable to accept the transfer center was down for the night and they did not have beds. 0515-Dr. Hickman, urology [facility] updated on patient's symptoms test results recommendations of [facility] urology agrees to accept transfer Discharge Plan Departure Patient Disposition: [facility] Clinical Impression: Ureter obstruction Prescriptions: No Action oxycodone 5 mg tablet 5 mg PO Q6H PRN (Reason: pain) Qty: 20 0RF phenazopyridine [Pyridium] 100 mg tablet 100 mg PO TID Qty: 9 0RF ondansetron 8 mg tablet,disintegrating 8 mg PO Q8H PRN (Reason: nausea and vomiting) Qty: 10 0RF escitalopram oxalate [Lexapro] 20 mg tablet 20 mg PO DAILY polyethylene glycol 3350 [Miralax] 17 gram/dose powder 17 g PO DAILY PRN (Reason: Constipation) Referrals: Denise Moon DO [Primary Care Provider] - ED Sign-out <Elmira Palma DO - Last Filed: 04/16/23 18:17> Cosign ED Attending Tamikaature Attestation: I was immediately available in the department for consultation. Documentation has been reviewed.
[2023-04-15 11:42] LABS: Bacteria Urine Few (2-10); Culture Indicated Urine Specimen Cultured; RBC Urine 30-100/HPF (0-5/HPF); Squamous Epithelial Cell Urine 5-10 /HPF (0-5/HPF); WBC Urine 1-5/HPF (0-5/HPF)
--- NOTE | 2023-04-15 12:34 | DI.CT.S_ITS ---
PROCEDURE: CT KIDNEY URETER BLADDER (KUB) INDICATIONS: r/o obstruction TECHNIQUE: Axial sections were acquired from the lung bases to the pubic symphysis. Coronal and sagittal reformats were performed. For radiation dose reduction, the following was used: automated exposure control, adjustment of mA and/or kV according to patient size. COMPARISON: [facility], CT, CT ABDOMEN PELVIS W CON, 04/13/2023, 15:16. FINDINGS: Image quality: Excellent. Lung bases: Unremarkable. Heart: No significant findings. URINARY: Kidneys and ureters: There is an extremely delayed right nephrogram with opacification of, and mild dilatation of the collecting system and mild to moderate right hydroureter, opacified with contrast. There is no contrast excretion in the left kidney. Contrast was last administered nearly 48 hours ago. No visible distal ureteral calcifications. Bladder: Diffusely decompressed. No stones. No visible urethral stone. ABDOMEN: Liver: Normal size. Gallbladder: Decompressed. There is moderate pericholecystic fluid, nonspecific. No calcifications. Biliary ducts: Nondilated. Pancreas: Normal contour. Spleen: Unremarkable. Adrenal Glands: Unremarkable. Stomach and Bowel: Stomach, small bowel loops, and colon are unremarkable. Appendix appears normal. Peritoneum: Scattered foci of free intraperitoneal gas, and gas dissecting in the right abdominal wall musculature. There is a small to moderate amount of free pelvic fluid. Ventral Wall: No hernia. Abdominal Nodes: No enlarged retroperitoneal or mesenteric lymph nodes. Vessels: Aorta and inferior vena cava are normal in size. PELVIS: Pelvic Organs: Per report, patient is status post hysterectomy. Left ovary contour appears normal. Right ovary was not seen. Pelvic Nodes: Unremarkable. Miscellaneous: No inguinal hernias are seen. Bones: Unremarkable. IMPRESSION: 1. Significantly delayed right renal function and [id number] right hydroureteronephrosis. The distal most ureter is not opacified. There is likely a near complete ureteral obstruction at this level. 2. Postsurgical changes of hysterectomy and right oophorectomy including some free pelvic fluid and trace amounts of free intraperitoneal air. Dictated by: Hattie Malin M.D. on 04/15/2023 at 13:24 Approved by: Hattie Malin M.D. on 04/15/2023 at 13:31
[2023-04-15] MEDS: cefTRIAXone 1,000 MG in SODIUM CHLORIDE 0.9% 100 ML 200 MG IV (12:42)
[2023-04-15] MEDS: OXYBUTYNIN 5 MG TABLET PO (13:34)
[2023-04-15] MEDS: LORazepam 2 MG/ML INJ 1 MG IV (15:43)
--- NOTE | 2023-04-15 15:43 | PC.NURSE ---
Called, pushed images, and sent packets to [facility], [facility], and [facility].
[2023-04-15 18:41] LABS: COVID19 -Nasal RAPID Negative (Negative)
[2023-04-15] MEDS: HYDROMORPHONE 1 MG INJ IV (20:50)
--- NOTE | 2023-04-15 20:53 | PC.NURSE ---
Addendum entered by Cecy Day CNA 04/16/23 02:03: CHIDI note: Spoke to Susu at [facility]. She asked if I had any luck finding a bed at [facility]. I told her about the weird phone situation. She said that their transfer line is shut down after 8pm and has been for months, and maybe to call their emergency department and work that way. Spoke to their ED charge who then had their attending talk to Dr. Palma. Minerva got a number for their communications line. Called and was given a strange voice mail line. Left a message there. [facility] who said [facility]. Spoke to Susu again, she said to talk to the main polisher [employer]. Did so, spoke to Michelle RN. Michelle said they have no beds and won't until Sunday at least. Spoke to Susu at [phone]. She said the patient is currently waitlisted at [facility]. Thanked Susu for her help. She said she will continue to look for a bed. Original Note: CHIDI note: Attempting to find placement for patient. Spoke to Susu at the [facility], she suggested because the patient was seen at [facility] to call them and call [facility]. Attempted to call twice, but phone was acting strange on their end. Faxed over a patient face sheet and with a note to please call us and that their phone isn't working. Still working at finding placement for patient.
[2023-04-16] VITALS (14 sets, daily range): BP systolic 111–132; BP diastolic 59–73; PULSE 55–67; RESP 16; TEMP 37; O2SAT 91–99
[2023-04-16] MEDS: KETOROLAC 30 MG/ML VIAL 15 MG IV (00:01)
[2023-04-16] MEDS: LORazepam 2 MG/ML INJ 1 MG IV ×2 (00:01→07:13)
[2023-04-16] MEDS: SODIUM CHLORIDE 0.9% 1,000 ML 150 ML IV (00:01)
[2023-04-16 04:24] LABS: Add Manual Diff / Slide Review NO; Basophils Absolute Auto 0 /uL (0-100); Basophils Percent Auto 0.4 % (0-2); Eosinophils Absolute Auto 0 /uL (0-450); Hematocrit 28.7 % (36-46); Hemoglobin 9.7 g/dL (12.0-16.0); Lymphocytes Absolute Auto 1000 /uL (1100-4500); Lymphocytes Percent Auto 27.7 % (25-40); Mean Corpuscular HGB Conc 33.8 % (30-36); Mean Corpuscular Hemoglobin 31.7 PG (26-34); Mean Corpuscular Volume 93.7 fL (80-100); Monocytes Absolute Auto 400 /uL (0-900); Neutrophils Absolute Auto 2200 /uL (1500-7000); Neutrophils Percent Auto 60.9 % (50-75); Platelet Count 156 X10^3/uL (150-400); Red Blood Cell Count 3.06 X10^6/uL (4.0-5.2); Red Cell Distribution Width 12.4 % (11.6-14.8); White Blood Cell Count 3.5 X10^3/uL (4.5-11.0)
[2023-04-16 04:33] LABS: BUN Creatinine Ratio 10.3 (6-22); Blood Urea Nitrogen 10 mg/dL (7-17); Calcium 8.3 mg/dL (8.4-10.2); Carbon Dioxide 25 mmol/L (22-32); Chloride 108 mmol/L (98-107); Estimated Glomerular Filt Rate > 60 mL/min (>60); Glucose 88 mg/dL (70-100); HEMOLYSIS < 15 (0-50); Potassium 3.6 mmol/L (3.4-5.1); Sodium 136 mmol/L (137-145)
[2023-04-16] MEDS: ONDANSETRON 4 MG/2 ML INJ IV (06:56)
[2023-04-16] MEDS: HYDROMORPHONE 1 MG INJ IV (06:56)
== END 2023-04-16 07:35 | disposition short-term general hospital (02) ==
PROVIDERS: Emergency Medicine; Physician Assistant Medical; Emergency Provider Emergency Medicine; PCP Family Medicine
DX: N13.5 Crossing vessel and stricture of ureter without hydronephrosis (principal); M54.50 Low back pain, unspecified; Z20.822 Contact with and (suspected) exposure to COVID-19; Z90.710 Acquired absence of both cervix and uterus
CPT/HCPCS: 36415; 74176; 80048; 80053; 81001; 81003; 83690; 85025; 87086; 87635; 96361; 96365; 96375; 96376; 99284; C9803; J0696; J1170; J1885; J2060; J2405

== ENCOUNTER → 2023-04-26 13:57 | Outpatient (CLI) | payer OTHER, SELFPAY | PROVIDERS: PCP Family Medicine; Visit Provider Urology | DX: N13.5 Crossing vessel and stricture of ureter without hydronephrosis (principal); Z96.0 Presence of urogenital implants | CPT/HCPCS: 87086 ==

== ENCOUNTER → 2023-04-26 14:32 | Outpatient (CLI) | payer OTHER, SELFPAY ==
--- NOTE | 2023-04-26 14:33 | DI.RAD.S_ITS ---
PROCEDURE: XR KUB INDICATIONS: Indwelling stent TECHNIQUE: One view of the abdomen acquired. COMPARISON: None. FINDINGS: Surgical changes and devices: Right ureteral stent. Bowel: Bowel gas pattern is normal. Soft tissues: No suspicious abdominal calcifications. Visualized solid organ contours appear normal in size. Bones: No suspicious bony lesions. IMPRESSION: Right ureteral stent in expected position. Dictated by: Carla Don MD, PhD on 04/26/2023 at 14:51 Approved by: Carla Don MD, PhD on 04/26/2023 at 14:51
== END ==
PROVIDERS: PCP Family Medicine; Referring Provider Urology; Visit Provider Urology
DX: N13.5 Crossing vessel and stricture of ureter without hydronephrosis (principal); Z96.0 Presence of urogenital implants; N13.30 Unspecified hydronephrosis
CPT/HCPCS: 74018; 81002; 87086; 99214

== ENCOUNTER → 2023-04-30 15:57 | Outpatient (CLI) | payer OTHER, SELFPAY | PROVIDERS: PCP Family Medicine; Visit Provider Urology | DX: Z96.0 Presence of urogenital implants (principal); N13.5 Crossing vessel and stricture of ureter without hydronephrosis; N13.30 Unspecified hydronephrosis | CPT/HCPCS: 51701; 87086 ==

== ENCOUNTER 2023-05-14 06:19 | Day surgery (SDC) | payer OTHER, SELFPAY ==
[2023-05-10 07:32] VITALS: BMI 17.9
--- NOTE | 2023-05-14 | DI.RAD.S_ITS ---
PROCEDURE: XR ABDOMEN 1V INDICATIONS: STENT PLACEMENT. TECHNIQUE: 22 intra-operative images acquired by the Urology service. COMPARISON: None. FINDINGS: Double-J nephroureteral stent was placed. Contrast opacifies the right collecting system. No contrast extravasation visualized. IMPRESSION: Right double-J nephroureteral stent placement with contrast opacification of the right collecting system. Please see separately dictated urology report for additional details. Approved by: Miri Sotelo M.D. on 05/14/2023 at 11:14
[2023-05-14 06:39] VITALS: BP 109/67; PULSE 70; RESP 16; TEMP 36.7; O2SAT 98; BMI 17.9
[2023-05-14] MEDS: SCOPOLAMINE 1 PATCH TOP (07:01)
[2023-05-14] MEDS: LACTATED RINGERS 1,000 ML 42 ML IV (07:01)
--- NOTE | 2023-05-14 07:29 | SUR.OPER ---
Lithotomy on padded OR bed, head on pillow, arms secured on padded arm boards at <90 degrees abduction. Legs secured in padded yellow fins stirrups.
--- NOTE | 2023-05-14 07:42 | PM.PREOP ---
Pre-operative Note COVID-19 COVID-19 status: Not tested Interval Note History & Physical reviewed/Exam performed by Physician: Yes Changes to H&P: No
[2023-05-14] MEDS: CEFAZOLIN 2 GM/100 ML PREMIX 100 ML IV (07:50)
[2023-05-14] MEDS: iopamidoL 30 ML VIAL INJ (08:11)
--- NOTE | 2023-05-14 08:33 | P.OP_ITS ---
Procedure & Clinicians Procedure: Cystoscopy with right stent removal and retrograde pyelogram Same procedure as scheduled: Yes Indications: This very pleasant 42-year-old female had undergone obstetrics/gynecology nurse surgery with removal of her right ovary. She did for this procedure have lighted ureteral stents placed. Postoperatively the patient began to have overwhelming right flank pain and was eventually found to have right ureteral obstruction in the pelvis etiology of which was never completely defined she underwent emergent stent placement and now comes to be evaluated for stent removal retrograde pyelogram to ensure that she is draining. Surgeon: Radhames Fitzgerald Anesthesia Type: General Operative Notes Findings: At cystoscopy external genitalia and vagina were normal. Urethral meatus was normal urethra is normal along its length. Left ureteral orifices was in normal position with cleft clear efflux. The bladder mucosa was normal there were no abnormalities within the bladder. A 7 x 24 Taiwanese stent was noted in the right ureteral orifice. There was no bullous edema or abnormality at the orifice. The stent appeared to be in good position as documented by fluoroscopy. At retrograde pyelogram the renal pelvis was decompressed and the ureter was normal along its length. There was no evidence of narrowing or compression and with th e system filled and then observed for drainage it quickly and efficiently drain with a normal appearing ureteral jet this was repeated twice to ensure that it drained documented by fluoroscopy and appeared to be normal at this point. Closure Type: not applicable Specimen(s): none sent Prosthetic devices, grafts, tissues, transplants, or devices: None Procedure in detail: Procedure in detail: After informed consent was obtained, the patient was ident ified and brought to the operating room where she was placed in his supine position on the table and anesthesia was induced and maintained. His hearing at adequate level of anesthesia the patient was transitioned to the lithotomy position where she was prepped, draped, prepared for Transurethral procedure. After prepping, draping, time-out, administration of antibiotics a 22 Taiwanese cystoscope was easily passed through the urethra in the bladder where cystoscopy was performed. Grasping forceps was then inserted the stent grasped and brought out to the urethral meatus. A hybrid guidewire was then easily passed up into the stent in the collecting system. This was documented by fluoroscopy. The stent was then backed out and a [place] catheter placed over the wire. ?Pull out? retrograde pyelogram was then performed observing the ureter and the renal pelvis as the catheter was backed out. It appeared to be wide open and so a cone-tip catheter was then impacted in the right ureteral orifice and the collecting system filled with contrast under fluoroscopic visualization. It was then observed for drainage. A vigorous ureteral jet was noted in the bladder and by fluoroscopic visualization the system drained quickly and efficiently without narrowing obstruction or hydronephrosis. This was then repeated filling the collecting system again via a cone-tip catheter and observe for drainage with the same result. At this point the bladder was drained the scope was removed the patient was awakened having tolerated the procedure well to be transferred to the postanesthesia care unit for recovery. From there she will be discharged to home to follow-up in my office in approximately 14 days. There were no complications Complications: none Post-operative Condition: stable Disposition: PACU Plan for aftercare: Patient to be discharged to home to follow up my office in approximately 14 days.
[2023-05-14 08:37] VITALS: BP 119/88; PULSE 88; RESP 11; TEMP 36.1; O2SAT 99
[2023-05-14 08:42] VITALS: BP 110/73; PULSE 85; RESP 13; O2SAT 98
[2023-05-14 08:47] VITALS: BP 103/71; PULSE 74; RESP 11; O2SAT 99
[2023-05-14 08:52] VITALS: BP 106/71; PULSE 71; RESP 11; O2SAT 100
[2023-05-14 08:57] VITALS: BP 106/73; PULSE 73; RESP 15; TEMP 36.9; O2SAT 99
== END 2023-05-14 09:19 | disposition home or self-care (01) ==
PROVIDERS: PCP Family Medicine; Referring Provider Urology; Visit Provider Urology
PROC: (CPT 52310; principal; 2023-05-14 07:45)
DX: Z46.6 Encounter for fitting and adjustment of urinary device (principal)
CPT/HCPCS: 52310; 74018; 76000; 82962; J0690; J1100; J1885; J2250; J2405; J2704; J3010; Q9967